=== PATIENT | female | born 1965 | race Caucasian/White ===

== ENCOUNTER 2016-12-05 21:44 | Emergency (ER) | payer OTHER ==
[~2016-12-05] VITALS: Ht 167.6 cm; Wt 65.0 kg
[~2016-12-05 21:44] MED LIST: HUMA100I SC; INSU100V3 SC; LISI-360 PO; LORA-392 PO; NOVOLOGP2 SQ
[2016-12-05 21:45] VITALS: BP 123/82; PULSE 117; RESP 18; TEMP 98.4; O2SAT 100
[2016-12-05] MEDS ORDERED: BUPR150CR PO (21:58)
[2016-12-05] MEDS ORDERED: GABA100C4 PO (21:58)
[2016-12-05] MEDS ORDERED: SODIUM CHLOR 0.9% 1000 ML INJ 1,000 ML IV ONE (22:00)
--- NOTE | 2016-12-05 22:04 | PD ---
HPI Chief Complaint: Pain: Acute or Chronic Time Seen by Provider: 21:54 Travel History International Travel<30 days: No Contact w/Intl Traveler<30days: No Traveled to known affect area: No History of Present Illness HPI This is a 51-year-old female who has a history of diabetes who presents to the emergency department with pain all over her body, worse in her left shoulder radiating all the way down to her toes. Her pain has been constant and chronic but worse today. She takes gabapentin 100 mg 3 times a day for her pain. She was recently discharged from [facility] where she was admitted for depression after 2 of her family members . She says she hasn't had her insulin and she hasn't been checking her blood sugars. PFS Past Medical History Anxiety: Yes Depression: Yes Cardiovascular Problems: Yes High Cholesterol: Yes Diabetes: Yes Patient Takes Glucophage: No Diminished Hearing: No Genitourinary: Yes ([place]) Herniated Disk: Yes (LUMBAR SPINE) Hypertension: Yes Musculoskeletal: Yes (right shoulder/arm bursistis?) Neurologic: Yes (neuropathy) Integumentary: Yes (PSORIASIS) Seizures: Yes ?: Not Menopausal: No : 8 Para: 4 Miscarriage: 4 Dilation and Curettage (D&C): Yes (2005) Past Surgical History Cholecystectomy: Yes Hysterectomy: Yes Other Surgery: Yes (R. FOOT 5TH DIGIT BONE REMOVED ) Family History Family Myocardial Infarction: Yes Social History Alcohol Use: No Tobacco Use: Yes (1 ppd) Substance Use: No Allergies-Medications (Allergen,Severity, Reaction): Coded Allergies: Iodine (Verified Allergy, Severe, Tachycardia, 12/05/16) Morphine (Verified Allergy, Severe, SOB, 12/05/16) Shellfish (Verified Allergy, Severe, Anaphylaxis, 12/05/16) Theophylline (Verified Allergy, Severe, Tachycardia, 12/05/16) Reported Meds & Prescriptions Reported Meds & Active Scripts Active Reported Wellbutrin SR 12 HR (Bupropion HCl) 150 Mg Tab 150 Mg PO DAILY Gabapentin 100 Mg Cap 100 Mg PO TID Review of Systems Except as stated in HPI: all other systems reviewed are Neg Physical Exam Narrative GENERAL:Well appearing, no acute distress SKIN: Focused skin assessment warm and dry. HEAD: Atraumatic. Normocephalic. EYES: Pupils equal and round. No injection or drainage. ENT: Moist mucous membranes NECK: Trachea midline. CARDIOVASCULAR: Regular rate and rhythm. No murmur appreciated. RESPIRATORY: Clear to auscultation. Breath sounds equal bilaterally. GASTROINTESTINAL: Abdomen soft, non-tender, nondistended. MUSCULOSKELETAL: Tender to light touch with minimal exam all over her body NEUROLOGICAL: Awake and alert. No obvious cranial nerve deficits. Moving all extremities. PSYCHIATRIC: Tearful, depressed mood, no suicidal ideation Data Data Last Documented VS Vital Signs Date Time Temp Pulse Resp B/P Pulse Ox O2 Delivery O2 Flow Rate FiO2 12/05/16 22:34 95 18 135/79 100 Room Air 12/05/16 21:45 98.4 Orders Complete Blood Count With Diff (12/05/16 21:59) Comprehensive Metabolic Panel (12/05/16 21:59) ^ Insert Iv (12/05/16 21:59) Creatine Kinase (Cpk) (12/05/16 21:59) Sodium Chlor 0.9% 1000 Ml Inj (Ns 1000 M (12/05/16 22:00) Ketorolac Inj (Toradol Inj) (12/05/16 22:15) Labs Laboratory Tests Test 12/05/16 22:10 White Blood Count 8.5 TH/MM3 Red Blood Count 5.03 MIL/MM3 Hemoglobin 15.5 GM/DL Hematocrit 43.6 % Mean Corpuscular Volume 86.7 FL Mean Corpuscular Hemoglobin 30.8 PG Mean Corpuscular Hemoglobin 35.5 % Concent Red Cell Distribution Width 12.5 % Platelet Count 305 TH/MM3 Mean Platelet Volume 9.6 FL Neutrophils (%) (Auto) 45.5 % Lymphocytes (%) (Auto) 41.4 % Monocytes (%) (Auto) 7.9 % Eosinophils (%) (Auto) 3.7 % Basophils (%) (Auto) 1.5 % Neutrophils # (Auto) 3.9 TH/MM3 Lymphocytes # (Auto) 3.5 TH/MM3 Monocytes # (Auto) 0.7 TH/MM3 Eosinophils # (Auto) 0.3 TH/MM3 Basophils # (Auto) 0.1 TH/MM3 CBC Comment DIFF FINAL Differential Comment Sodium Level 131 MEQ/L Potassium Level 4.3 MEQ/L Chloride Level 98 MEQ/L Carbon Dioxide Level 22.8 MEQ/L Anion Gap 10 MEQ/L Blood Urea Nitrogen 18 MG/DL Creatinine 0.83 MG/DL Estimat Glomerular Filtration 73 ML/MIN Rate Random Glucose 359 MG/DL Calcium Level 9.1 MG/DL Total Bilirubin 0.4 MG/DL Aspartate Amino Transf 23 U/L (AST/SGOT) Alanine Aminotransferase 25 U/L (ALT/SGPT) Alkaline Phosphatase 134 U/L Total Creatine Kinase 48 U/L Total Protein 7.5 GM/DL Albumin 3.6 GM/DL MDM Medical Decision Making Medical Screen Exam Complete: Yes Emergency Medical Condition: Yes Interpretation(s) Afebrile, tachycardia, normotensive No leukocytosis Mild hyponatremia Mild hyperglycemia Differential Diagnosis Diabetic neuropathy, fibromyalgia, anxiety, rhabdomyolysis, hyperglycemia Narrative Course This is a 51-year-old female who presents to the emergency department reporting pain all over in the setting of a history of diabetes. Labs are obtained which demonstrates a mild hyperglycemia. On exam the patient is very anxious, tearful and reports severe pain with light touch on exam in multiple different areas. I suspect the patient does have some neuropathy but I think most of her symptoms today are related to depression or anxiety. Patient will be discharged with instructions to increase her gabapentin. Diagnosis Primary Impression: Diabetic neuropathy Qualified Code: E11.42 - Diabetic polyneuropathy associated with type 2 diabetes mellitus Additional Impression: Anxiety Patient Instructions: General Instructions Additional Instructions: If you develop severe chest pain, shortness of breath, sweating, lightheadedness , dizziness or difficulty breathing return to the emergency department immediately. Followup with your primary care physician in 2-3 days if your symptoms are not resolved. Med/Other Pt SpecificInfo: Prescription(s) given Scripts Gabapentin 300 Mg Aey300 Mg PO TID #90 CAP Ref 0 Prov:Aria Silva MD 12/05/16 Disposition: 01 DISCHARGE HOME Condition: Stable Aria Silva MD Dec 05, 2016 22:04
[2016-12-05] MEDS ORDERED: KETOROLAC TROMETHAMINE 30 MG/ML (IVP) VIAL IV PUSH ONE (22:15)
[2016-12-05 22:24] LABS: AUTOMATED NEUTROPHIL # 3.9 TH/MM3 (1.8-7.7); BASOPHIL # 0.1 TH/MM3 (0-0.2); BASOPHIL % 1.5 % (0.0-2.0); EOSINOPHIL # 0.3 TH/MM3 (0-0.4); EOSINOPHIL % 3.7 % (0.0-4.0); HEMATOCRIT 43.6 % (35.0-46.0); HEMO FLAGS DIFF FINAL; LYMPH % 41.4 % (9.0-44.0); LYMPHOCYTE # 3.5 TH/MM3 (1.0-4.8); MEAN CELL VOLUME 86.7 FL (80.0-100.0); MEAN CORPUSCULAR HEMOGLOBIN 30.8 PG (27.0-34.0); MEAN CORPUSCULAR HGB CONC 35.5 % (32.0-36.0); MONO % 7.9 % (0.0-8.0); NEUT % 45.5 % (16.0-70.0); PLATELET COUNT 305 TH/MM3 (150-450); RED BLOOD COUNT 5.03 MIL/MM3 (4.00-5.30); RED CELL DISTRIBUTION WIDTH 12.5 % (11.6-17.2); WHITE BLOOD COUNT 8.5 TH/MM3 (4.0-11.0)
[2016-12-05 22:34] VITALS: BP 135/79; PULSE 95; RESP 18; O2SAT 100
[2016-12-05 22:43] LABS: ALT (GPT) 25 U/L (10-53)
[2016-12-05 22:49] LABS: ALKALINE PHOSPHATASE 134 U/L (45-117); ANION GAP 10 MEQ/L (5-15); AST (GOT) 23 U/L (15-37); BICARBONATE 22.8 MEQ/L (21.0-32.0); BLOOD UREA NITROGEN 18 MG/DL (7-18); CHLORIDE 98 MEQ/L (98-107); GLOMERULAR FILTRATION RATE 73 ML/MIN (>89); POTASSIUM 4.3 MEQ/L (3.5-5.1); SODIUM (NA) 131 MEQ/L (136-145); TOTAL BILIRUBIN ADULT 0.4 MG/DL (0.2-1.0)
[2016-12-05 22:56] LABS: CREATINE KINASE 48 U/L (26-192)
[2016-12-05] MEDS ORDERED: GABA300C5 PO (23:01)
== END 2016-12-05 23:08 | disposition home or self-care (01) ==
LOC: NEPD 21:44
DX: E11.42 Type 2 diabetes mellitus with diabetic polyneuropathy (principal); F41.8 Other specified anxiety disorders; R00.0 Tachycardia, unspecified; F17.210 Nicotine dependence, cigarettes, uncomplicated; E78.00 Pure hypercholesterolemia, unspecified; E87.1 Hypo-osmolality and hyponatremia; R73.9 Hyperglycemia, unspecified
CPT/HCPCS: 80053; 82550; 85025; 96361; 96374; 99284; J1885; J7030

== ENCOUNTER 2017-09-06 19:16 | Emergency (ER) | payer OTHER ==
[~2017-09-06] VITALS: Ht 165.1 cm; Wt 70.0 kg
[~2017-09-06 19:16] MED LIST changes: +BUPR150CR PO; +GABA100C4 PO; +GABA300C5 PO; -HUMA100I SC; -INSU100V3 SC; -LISI-360 PO; -LORA-392 PO; -NOVOLOGP2 SQ
[2017-09-06 19:26] VITALS: BP 179/87; PULSE 140; RESP 26; TEMP 98.4; O2SAT 98
--- NOTE | 2017-09-06 19:43 | PD ---
HPI Chief Complaint: Seizure Time Seen by Provider: 19:31 Travel History International Travel<30 days: No Contact w/Intl Traveler<30days: No Traveled to known affect area: No History of Present Illness HPI 51-year-old female brought in by ambulance for evaluation of a panic attack/ anxiety and possible seizure. The patient's son was apparently placed under arrest and this caused the patient to act hysterically. EMS thought that she may have been having a seizure and provide her Ativan. The patient is hysterically crying stating that she wants her son and is difficult to console. She is denying any physical complaints. PFS Past Medical History Anxiety: Yes Depression: Yes Cardiovascular Problems: Yes High Cholesterol: Yes Diabetes: Yes Diminished Hearing: No Genitourinary: Yes ([place]) Herniated Disk: Yes (LUMBAR SPINE) Hypertension: Yes Musculoskeletal: Yes (right shoulder/arm bursistis?) Neurologic: Yes (neuropathy) Integumentary: Yes (PSORIASIS) Seizures: Yes ?: Unknown Menopausal: No : 8 Para: 4 Miscarriage: 4 Dilation and Curettage (D&C): Yes (2005) Past Surgical History Cholecystectomy: Yes Hysterectomy: Yes Other Surgery: Yes (R. FOOT 5TH DIGIT BONE REMOVED ) Social History Alcohol Use: No Tobacco Use: Yes (1 ppd) Substance Use: No Allergies-Medications (Allergen,Severity, Reaction): Coded Allergies: iodine (Unverified Allergy, Severe, Tachycardia, 09/06/17) morphine (Unverified Allergy, Severe, SOB, 09/06/17) potassium iodide (Unverified Allergy, Severe, Tachycardia, 09/06/17) povidone-iodine (Unverified Allergy, Severe, Tachycardia, 09/06/17) shellfish derived (Unverified Allergy, Severe, Anaphylaxis, 09/06/17) sodium iodide (Unverified Allergy, Severe, Tachycardia, 09/06/17) sodium iodide (Unverified Allergy, Severe, Tachycardia, 09/06/17) theophylline (Unverified Allergy, Severe, Tachycardia, 09/06/17) Reported Meds & Prescriptions Reported Meds & Active Scripts Active Gabapentin 300 Mg Cap 300 Mg PO TID Reported Wellbutrin SR 12 HR (Bupropion HCl) 150 Mg Tab 150 Mg PO DAILY Gabapentin 100 Mg Cap 100 Mg PO TID Review of Systems Except as stated in HPI: all other systems reviewed are Neg Physical Exam Narrative GENERAL: Well-developed, well-nourished, hysterically crying. SKIN: Focused skin assessment warm/dry. HEAD: Atraumatic. Normocephalic. EYES: Pupils equal and round. No scleral icterus. No injection or drainage. ENT: No nasal bleeding or discharge. Mucous membranes pink and moist. NECK: Trachea midline. No JVD. CARDIOVASCULAR: Tachycardic, rate 140s, regular. RESPIRATORY: No accessory muscle use. Clear to auscultation. Breath sounds equal bilaterally. GASTROINTESTINAL: Abdomen soft, non-tender, nondistended. MUSCULOSKELETAL: No obvious deformities. No clubbing. No cyanosis. No edema. NEUROLOGICAL: Awake and alert. No obvious cranial nerve deficits. Motor grossly within normal limits. Normal speech. PSYCHIATRIC: Hysterically crying. Data Data Last Documented VS Vital Signs Date Time Temp Pulse Resp B/P (MAP) Pulse Ox O2 Delivery O2 Flow Rate FiO2 09/06/17 19:26 98.4 140 26 179/87 (117) 98 Orders Orders Complete Blood Count With Diff (09/06/17 19:35) Comprehensive Metabolic Panel (09/06/17 19:35) Thyroid Stimulating Hormone (09/06/17 19:35) Psych Screen (09/06/17 19:35) Lorazepam Inj (Ativan Inj) (09/06/17 19:45) Drug Screen, Random Urine (09/06/17 19:35) Alcohol (Ethanol) (09/06/17 19:35) Sodium Chlor 0.9% 1000 Ml Inj (Ns 1000 M (09/06/17 19:45) Sodium Chlor 0.9% 1000 Ml Inj (Ns 1000 M (09/06/17 19:45) Beta Hydroxybutyrate (Acetone) (09/06/17 19:35) Labs Laboratory Tests Test 09/06/17 19:40 White Blood Count 9.3 TH/MM3 Red Blood Count 4.79 MIL/MM3 Hemoglobin 14.4 GM/DL Hematocrit 43.0 % Mean Corpuscular Volume 89.8 FL Mean Corpuscular Hemoglobin 30.2 PG Mean Corpuscular Hemoglobin Concent 33.6 % Red Cell Distribution Width 12.7 % Platelet Count 369 TH/MM3 Mean Platelet Volume 9.0 FL Neutrophils (%) (Auto) 47.7 % Lymphocytes (%) (Auto) 40.4 % Monocytes (%) (Auto) 7.8 % Eosinophils (%) (Auto) 2.8 % Basophils (%) (Auto) 1.3 % Neutrophils # (Auto) 4.4 TH/MM3 Lymphocytes # (Auto) 3.8 TH/MM3 Monocytes # (Auto) 0.7 TH/MM3 Eosinophils # (Auto) 0.3 TH/MM3 Basophils # (Auto) 0.1 TH/MM3 CBC Comment DIFF FINAL Differential Comment Blood Urea Nitrogen 26 MG/DL Creatinine 0.92 MG/DL Random Glucose 307 MG/DL Total Protein 7.9 GM/DL Albumin 3.8 GM/DL Calcium Level 9.6 MG/DL Alkaline Phosphatase 131 U/L Aspartate Amino Transf (AST/SGOT) 15 U/L Alanine Aminotransferase (ALT/SGPT) 24 U/L Total Bilirubin 0.4 MG/DL Sodium Level 137 MEQ/L Potassium Level 3.9 MEQ/L Chloride Level 102 MEQ/L Carbon Dioxide Level 22.7 MEQ/L Anion Gap 12 MEQ/L Estimat Glomerular Filtration Rate 65 ML/MIN Thyroid Stimulating Hormone 3rd Gen 0.998 uIU/ML Ethyl Alcohol Level LESS THAN 3 MG/DL B-Hydroxybutyrate 0.19 MMOL/L [facility] Medical Decision Making Medical Screen Exam Complete: Yes Emergency Medical Condition: Yes Differential Diagnosis Panic attack/anxiety, metabolic abnormality Narrative Course Initial vital signs show heart rate 140, blood pressure 179/87, respiratory rate 26, pulse ox 98% on room air, oral temperature 98.4F. CBC is unremarkable. CMP is remarkable for random glucose 307, otherwise unremarkable. TSH is 0.998. Beta-hCG is negative. Patient's heart rate improved with 2 L normal saline IV and IV Ativan. She was given a small dose of insulin for her hyperglycemia. She is not in DKA. She is not suicidal or homicidal. She is stable for discharge home. The patient's is here and will take her home. Diagnosis Primary Impression: Panic attack Referrals: Primary Care Physician 3 days Additional Instructions: Follow-up with a primary care physician this week. Return to the emergency department for worsening symptoms or any other concerns. Disposition: DISCHARGE HOME Condition: Stable Mitchell Hernandez MD Sep 06, 2017 19:43
[2017-09-06] MEDS ORDERED: LORazepam 2 MG/ML VIAL IV PUSH ONE (19:45)
[2017-09-06] MEDS ORDERED: SODIUM CHLOR 0.9% 1000 ML INJ 1,000 ML IV ONE ×2 (19:45)
[2017-09-06 19:55] LABS: AUTOMATED NEUTROPHIL # 4.4 TH/MM3 (1.8-7.7); BASOPHIL # 0.1 TH/MM3 (0-0.2); BASOPHIL % 1.3 % (0.0-2.0); EOSINOPHIL # 0.3 TH/MM3 (0-0.4); EOSINOPHIL % 2.8 % (0.0-4.0); HEMOGLOBIN 14.4 GM/DL (11.6-15.3); LYMPH % 40.4 % (9.0-44.0); LYMPHOCYTE # 3.8 TH/MM3 (1.0-4.8); MEAN CELL VOLUME 89.8 FL (80.0-100.0); MEAN CORPUSCULAR HEMOGLOBIN 30.2 PG (27.0-34.0); MEAN CORPUSCULAR HGB CONC 33.6 % (32.0-36.0); MONO % 7.8 % (0.0-8.0); MONOCYTE # 0.7 TH/MM3 (0-0.9); NEUT % 47.7 % (16.0-70.0); PLATELET COUNT 369 TH/MM3 (150-450); RED BLOOD COUNT 4.79 MIL/MM3 (4.00-5.30); RED CELL DISTRIBUTION WIDTH 12.7 % (11.6-17.2); WHITE BLOOD COUNT 9.3 TH/MM3 (4.0-11.0)
[2017-09-06 20:46] LABS: ALBUMIN 3.8 GM/DL (3.4-5.0); ALKALINE PHOSPHATASE 131 U/L (45-117); ALT (GPT) 24 U/L (10-53); AST (GOT) 15 U/L (15-37); BICARBONATE 22.7 MEQ/L (21.0-32.0); BLOOD UREA NITROGEN 26 MG/DL (7-18); CALCIUM 9.6 MG/DL (8.5-10.1); CHLORIDE 102 MEQ/L (98-107); CREATININE 0.92 MG/DL (0.50-1.00); GLOMERULAR FILTRATION RATE 65 ML/MIN (>89); GLUCOSE,RANDOM 307 MG/DL (74-106); SODIUM (NA) 137 MEQ/L (136-145); TOTAL BILIRUBIN ADULT 0.4 MG/DL (0.2-1.0); TOTAL PROTEIN 7.9 GM/DL (6.4-8.2)
[2017-09-06] MEDS ORDERED: INSULIN HUMAN REGULAR 1,000 UNITS/10 ML VIAL IV PUSH ONE (21:00)
== END 2017-09-06 22:36 | disposition home or self-care (01) ==
LOC: NEPC 19:16
DX: F41.0 Panic disorder [episodic paroxysmal anxiety] (principal); F32.9 Major depressive disorder, single episode, unspecified; E78.00 Pure hypercholesterolemia, unspecified; E11.65 Type 2 diabetes mellitus with hyperglycemia; I10 Essential (primary) hypertension; L40.9 Psoriasis, unspecified; F17.200 Nicotine dependence, unspecified, uncomplicated
CPT/HCPCS: 80053; 80307; 82010; 84443; 85025; 96361; 96374; 96375; 99283; J1815; J2060; J7030